=== PATIENT | male | born 1990 | race Two or more races ===

== ENCOUNTER 2018-01-16 10:26 | Emergency (ER) | payer BC, OTHER ==
[2018-01-16 10:41] VITALS: BP 115/51
--- NOTE | 2018-01-16 13:41 | UC ---
Gera Rodney Julia, scribed for Ham Lamas MD on 01/16/18 at 1108 . Skin Complaint HPI - HPI Summary HPI Summary: This patient is a 27 year old M [place] [facility] [place] chief complaint of potential bug bites in the right gluteal area. He is unsure of how he got this rash and has been having these symptoms, including itching and pain, for the past two days. Pain is 3/10 in severity. Patient has no other complaints. - History of Current Complaint Chief Complaint: UCSkin Time Seen by Provider: 01/16/18 10:55 Stated Complaint: SKIN ISSUE Hx Obtained From: Patient Onset/Duration: Lasting Days Skin Exposure Onset/Duration: Days Ago Pain Intensity: 3 Pain Scale Used: 0-10 Numeric Location: Other - right gluteal Character: Pruritus, Pain Associated Signs & Symptoms: Positive: Negative - Allergy/Home Medications Allergies/Adverse Reactions: Allergies Allergy/AdvReac Type Severity Reaction Status Date / Time No Known Allergies Allergy Verified 01/16/18 10:41 Review of Systems Constitutional: Negative Skin: Rash All Other Systems Reviewed And Are Negative: Yes PMH/Surg Hx/FS Hx/Imm Hx Previously Healthy: Yes - Surgical History Surgical History: None - Family History Known Family History: Positive: Hypertension - Social History Alcohol Use: Weekly Substance Use Type: None Smoking Status (MU): Never Smoked Tobacco Physical Exam - Summary Physical Exam Summary: VITAL SIGNS: Reviewed. GENERAL: Patient is a well developed and nourished male who is lying comfortable in the stretcher. Patient is not in any acute respiratory distress. HEAD AND FACE: Normocephalic EYES: PERRLA, EOMI x 2. EARS: Hearing grossly intact. MOUTH: Oropharynx within normal limits. NECK: Supple, trachea is midline, no adenopathy, no JVD, no carotid bruit. CHEST: Symmetric, no tenderness at palpation LUNGS: Clear to auscultation bilaterally. No wheezing or crackles. CVS: Regular rate and rhythm, S1 and S2 present, no murmurs or gallops appreciated. ABDOMEN: Soft, non-tender. Bowel sounds are normal. No abdominal abnormal pulsations. EXTREMITIES: Full ROM in all major joints, no edema, no cyanosis or clubbing. NEURO: Alert and oriented x 3. No acute neurological deficits. Speech is normal and follows commands. SKIN: Dry and warm, vesicular lesion with erythema and tenderness to palpation over right gluteal area Triage Information Reviewed: Yes Vital Signs: Initial Vital Signs Temp 98.6 F 01/16/18 10:36 Pulse 63 01/16/18 10:36 Resp 19 01/16/18 10:36 BP 115/51 01/16/18 10:36 Pulse Ox 98 01/16/18 10:36 Vital Signs Reviewed: Yes Course/Dx - Course Course Of Treatment: This patient is a 27 year old M [place] [facility] [place] chief complaint of potential bug bites in the right gluteal area. He is unsure of how he got this rash and has been having these symptoms, including itching and pain, for the past two days. Pain is 3/10 in severity. Patient has no other complaints. Patient appears to have shingles. He will be given a prescription for Valtrex. Patient is be cischarged and is instructed to follow up with his PCP. I discussed all the findings and test results with the patient. Patient was instructed to return to the urgent care immediately if any of the symptoms return or worsens. Plan of care was discussed with the patient, and patient understands and agrees. All questions were answered to patient satisfaction. There were no further complaints or concerns. - Diagnoses Provider Diagnoses: shingles Discharge - Sign-Out/Discharge Documenting (check all that apply): Discharge/Admit/Transfer - Discharge Plan Condition: Stable Disposition: HOME Prescriptions: ValACYclovir (*) [Valtrex 1 GM(*)] 1 gm PO BID #20 tab Patient Education Materials: Shingles (ED) Referrals: Viet Rahman MD [Primary Care Provider] - Additional Instructions: Take medications as instructed Increase your fluid intake Return to the UC if symptoms worsen The documentation as recorded by the Gera munoz Julia accurately reflects the service I personally performed and the decisions made by , Ham Lamas MD.
== END 2018-01-16 11:07 | disposition home or self-care (01) ==
LOC: UCEAST 10:26
DX: B02.9 Zoster without complications (principal)
CPT/HCPCS: 99212; G0463

== ENCOUNTER 2019-06-05 14:17 | Emergency (ER) | payer BC, OTHER ==
[2019-06-05 16:27] VITALS: BP 123/76
--- NOTE | 2019-06-05 16:50 | UC ---
Respiratory Complaint HPI - HPI Summary HPI Summary: 28-year-old male with history of asthma presents with complaints of a persistent cough. States 2 weeks ago he developed cold-like symptoms including nasal congestion, runny nose, and a productive cough for clear sputum with some general malaise and fatigue. States symptoms resolved after about one week however he has continued to have an occasional dry, nonproductive cough. States he has not had to use his albuterol inhaler. Has not tried any over-the- counter remedies for the cough. Denies fever, chills, chest pain, shortness of breath, or wheezing. - History of Current Complaint Chief Complaint: UCRespiratory Stated Complaint: COUGH Time Seen by Provider: 06/05/19 16:47 Hx Obtained From: Patient Pain Intensity: 1 - Allergies/Home Medications Allergies/Adverse Reactions: Allergies Allergy/AdvReac Type Severity Reaction Status Date / Time No Known Allergies Allergy Verified 06/05/19 16:27 Home Medications: Home Medications Albuterol HFA INHALER* [Ventolin HFA Inhaler*] 2 puff INH Q4H PRN 06/05/19 [ History Confirmed 06/05/19] Cetirizine* [ZyrTEC 10 MG TAB*] 10 mg PO DAILY 06/05/19 [History Confirmed 06/05] GuaiFENesin DM* [Robitussin DM*] 20 ml PO Q6H PRN 06/05/19 [History Confirmed ] Ibuprofen TAB* [Advil TAB*] 200 mg PO Q6H PRN 06/05/19 [History Confirmed ] PMH/Surg Hx/FS Hx/Imm Hx Respiratory History: Asthma - Surgical History Surgical History: Yes Surgery Procedure, Year, and Place: wisdom teeth - Family History Known Family History: Positive: Hypertension - Social History Occupation: Unemployed Lives: Alone Alcohol Use: Occasionally Substance Use Type: None Smoking Status (MU): Never Smoked Tobacco Review of Systems All Other Systems Reviewed And Are Negative: Yes Constitutional: Negative: Fever, Chills Eyes: Negative: Drainage, Eye Redness ENT: Negative: Sore Throat, Ear Ache, Nasal Discharge, Sinus Congestion, Sinus Pain/Tenderness Respiratory: Positive: Cough. Negative: Shortness Of Breath Cardiovascular: Negative: Palpitations, Chest Pain Gastrointestinal: Positive: Negative Genitourinary: Positive: Negative Musculoskeletal: Positive: Negative Neurological: Positive: Negative Is Patient Immunocompromised?: No Physical Exam - Summary Physical Exam Summary: GENERAL APPEARANCE: Well developed, well nourished, alert and cooperative, and appears to be in no acute distress. EYES: Conjunctiva clear. No drainage. EARS: External auditory canals with soft cerumen, bilateral tympanic membranes clear, hearing grossly intact. NOSE: No nasal discharge. THROAT: Pharynx normal. No tonsilar inflammation, swelling, exudate, or lesions. Uvula midline. NECK: Neck supple, non-tender without lymphadenopathy. CARDIAC: Normal S1 and S2. No S3, S4 or murmurs. Rhythm is regular. There is no peripheral edema, cyanosis or pallor. Extremities are warm and well perfused. Capillary refill is less than 2 seconds. Peripheral pulses intact. LUNGS: Clear to auscultation without rales, rhonchi, wheezing or diminished breath sounds. Dry non-productive cough. ABDOMEN: Positive bowel sounds. Soft, nondistended, nontender. No guarding or rebound. No masses or hepatosplenomegally. MUSKULOSKELETAL: ROM intact to all extremities. No joint erythema or tenderness. Normal muscular development. Normal gait. SKIN: Skin normal color, texture and turgor with no lesions or eruptions. Triage Information Reviewed: Yes Vital Signs: Initial Vital Signs Temp 99.4 F 06/05/19 16:23 Pulse 65 06/05/19 16:23 Resp 16 06/05/19 16:23 BP 123/76 06/05/19 16:23 Pulse Ox 97 06/05/19 16:23 Vital Signs Reviewed: Yes Respiratory Course/Dx - Course Course Of Treatment: 28-year-old male with history of asthma presents with complaints of a persistent cough. States 2 weeks ago he developed cold-like symptoms including nasal congestion, runny nose, and a productive cough for clear sputum with some general malaise and fatigue. States symptoms resolved after about one week however he has continued to have an occasional dry, nonproductive cough. States he has not had to use his albuterol inhaler. Has not tried any over-the- counter remedies for the cough. Denies fever, chills, chest pain, shortness of breath, or wheezing. Afebrile. Vital signs stable. Patient had a dry nonproductive cough with clear bilateral breath sounds and otherwise unremarkable exam. Discussed with the patient that his cough is probably related to his recent upper respiratory infection and without fever likely does not need antibiotics at this time. Recommending symptomatic treatment including Tessalon Perles 1 capsule every 8 hours as needed for cough. He is to return here or follow-up with his primary care provider in one week if symptoms do not improve. Anticipatory guidance and warning symptoms were reviewed with the patient. He verbalizes understanding and agrees with plan of care. - Differential Dx/Diagnosis Differential Diagnosis/HQI/PQRI: Asthma, Bronchitis, Lower Resp Infection, Other - URI Provider Diagnosis: Persistent dry cough Discharge ED - Sign-Out/Discharge Documenting (check all that apply): Patient Departure All imaging exams completed and their final reports reviewed: No Studies - Discharge Plan Condition: Stable Disposition: HOME Prescriptions: Benzonatate CAP* [Tessalon 100 MG CAP*] 100 mg PO TID PRN #21 cap PRN Reason: Cough Patient Education Materials: Upper Respiratory Infection (ED) Referrals: Viet Rahman MD [Primary Care Provider] - 7 Days Additional Instructions: Your history and exam are consistent with a viral upper respiratory infection with cough that is improving. Be aware that the cough following an upper respiratory infection may persist for 2-3 weeks even if other symptoms have improved. Run a cool mist humidifer in your room at night. Take Tessalon Perles 1 cap every 8 hours as needed for cough. Use your albuterol inhaler according to directions as needed for shortness of breath, wheezing, or coughing fits. Follow up with your primary care provider in 7 days if symptoms do not improve. Seek immediate medical attention in the emergency room if you have fever greater than 100.5 F despite taking acetaminophen or ibuprofen, have chest pain , difficulty breathing, the cough becomes productive again, or you have any worsening of symptoms. - Billing Disposition and Condition Condition: STABLE Disposition: Home
== END 2019-06-05 17:15 | disposition home or self-care (01) ==
LOC: UCEAST 14:17
DX: R05 Cough (principal); J45.909 Unspecified asthma, uncomplicated; R53.83 Other fatigue; R53.81 Other malaise
CPT/HCPCS: 99212; G0463